=== PATIENT | female | born 1955 | race Caucasian/White ===

== ENCOUNTER → 2017-12-27 | Outpatient (CLI) | payer OTHER ==
[~2017-12-27] MED LIST: ADULT LOW DOSE81 MG PO; ALLOPURINOL 30300 M3 PO; GLUCOPHAGE500 MG PO; LOTREL 5-20 MG1 EACH PO; PROTONIX40 M2 PO; SERTRALINE HCL50 MG PO; SIMVASTATIN10 MG PO; ZIAC 10-6.25 M1 EACH PO
== END ==
LOC: M.RAD 10:09
DX: M47.816 Spondylosis without myelopathy or radiculopathy, lumbar region (principal); M25.78 Osteophyte, vertebrae; M48.061 Spinal stenosis, lumbar region without neurogenic claudication; M79.89 Other specified soft tissue disorders

== ENCOUNTER → 2017-12-30 | Outpatient (CLI) | payer OTHER | LOC: M.ULTRA 09:25 | DX: M79.89 Other specified soft tissue disorders (principal); M79.661 Pain in right lower leg; M79.662 Pain in left lower leg; M54.5 Low back pain ==